=== PATIENT | male | born 1965 | race African-American/Black ===

== ENCOUNTER 2017-08-26 20:22 | Emergency (ER) | payer BC ==
[2017-08-26 22:25] LABS: #Eosinphils 0.1 thou/uL (0.0-0.7); #Lymphocytes 1.2 thou/uL (1.20-3.40); #Monocytes 0.4 thou/uL (0.11-0.59); #Neutrophils 4.8 thou/uL (1.40-6.50); %Basophils 0.6 % (0.0-1.0); %Eosinophils 2.2 % (0.0-10.0); %Lymphocytes 18.3 % (21.0-51.0); %Monocytes 6.7 % (0.0-10.0); Hematocrit 43.3 % (42.0-52.0); Mean Platelet Volume 5.9 fL (7.4-10.4); Red Blood Cell (RBC) Count 4.74 mill/uL (4.70-6.10); White Blood Cell (WBC) Count 6.6 thou/uL (4.8-10.8)
--- NOTE | 2017-08-26 22:28 | RAD ---
PORTABLE CHEST ONE VIEW: 08/26/17 at 9:45 p.m. HISTORY: Chest pain. FINDINGS: Comparison is made with the exam of 06/21/17. The heart size is normal. The lungs are well expanded without focal areas of consolidation, pneumoth orax or pleural effusions. IMPRESSION: No radiographic evidence of acute cardiopulmonary process. POS: [facility]
[2017-08-26 22:45] LABS: ALT (SGPT) 26 U/L (8-55); AST (SGOT) 23 U/L (5-34); Alkaline Phosphatase 70 U/L (40-150); Anion Gap 13 mmol/L (10-20); BUN (Urea Nitrogen) 13 mg/dL (8.4-25.7); Bilirubin, Total 0.4 mg/dL (0.2-1.2); CK (CPK) 205 U/L (30-200); Calc. Creatinine Clearance 0 mL/min (70-130); Calcium 9.1 mg/dL (7.8-10.44); Carbon Dioxide 25 mmol/L (22-29); Chloride 108 mmol/L (98-107); Estimated GFR-MDRD 85; Globulin 3.3 g/dL (2.4-3.5); Protein, Total 7.3 g/dL (6.0-8.3)
[2017-08-26 22:50] LABS: Troponin I Less than 0.010 ng/mL (< 0.028)
== END 2017-08-27 00:58 | disposition home or self-care (01) ==
LOC: ERS 20:22
DX: F41.9 Anxiety disorder, unspecified (principal); E11.9 Type 2 diabetes mellitus without complications; I10 Essential (primary) hypertension; F17.210 Nicotine dependence, cigarettes, uncomplicated; Z79.4 Long term (current) use of insulin
CPT/HCPCS: 36415; 71010; 80053; 82553; 84484; 85025; 93005; 94760

== ENCOUNTER 2017-09-09 15:57 | Observation (INO) | payer BC ==
[2017-09-09] MEDS ORDERED: Iopamidol 370 76% 150 ML VIAL FS ONE ×2 (16:07)
--- NOTE | 2017-09-09 16:26 | CT ---
CT OF BRAIN PERFORMED WITHOUT CONTRAST ENHANCEMENT: 09/09/17 HISTORY: Right sided weakness. COMPARISON: 06/22/17 study. The ventricular and cisternal system is within normal limits. There is no signs of intracerebral hem orrhage or extra-axial fluid collections. Mastoid air cells and visualized sinuses are clear. IMPRESSION: 1. No acute intracranial abnormalities. 2. Findings telephoned to Dr. Michelle at 1618 hours. POS: [facility]
[2017-09-09 16:37] LABS: #Eosinphils 0.1 thou/uL (0.0-0.7); #Monocytes 0.5 thou/uL (0.11-0.59); #Neutrophils 3.2 thou/uL (1.40-6.50); %Basophils 0.3 % (0.0-1.0); %Eosinophils 2.8 % (0.0-10.0); %Monocytes 10.4 % (0.0-10.0); Mean Platelet Volume 6.2 fL (7.4-10.4); White Blood Cell (WBC) Count 4.8 thou/uL (4.8-10.8)
[2017-09-09 16:46] LABS: PTT 25.4 SEC (22.9-36.1)
[2017-09-09 16:58] LABS: Troponin I Less than 0.010 ng/mL (< 0.028)
[2017-09-09 17:08] LABS: ALT (SGPT) 29 U/L (8-55); AST (SGOT) 23 U/L (5-34); Alkaline Phosphatase 67 U/L (40-150); Anion Gap 11 mmol/L (10-20); BUN (Urea Nitrogen) 14 mg/dL (8.4-25.7); Bilirubin, Total 0.3 mg/dL (0.2-1.2); Calc. Creatinine Clearance 0 mL/min (70-130); Calcium 9.5 mg/dL (7.8-10.44); Carbon Dioxide 26 mmol/L (22-29); Chloride 107 mmol/L (98-107); Estimated GFR-MDRD Greater than 90; Globulin 3.4 g/dL (2.4-3.5); Protein, Total 7.6 g/dL (6.0-8.3)
--- NOTE | 2017-09-09 17:30 | CT ---
CT ANGIO OF NECK PERFORMED WITH INTRAVENOUS CONTRAST ENHANCEMENT WITH 3D RECONSTRUCTIONS: 09/09/17 HISTORY: Left leg and left arm weakness and paresthesias. Technically a fairly satisfactory examination was obtained. Small subcentimeter left lobe thyroid no dule is incidentally noted. No significant jugular chain adenopathy or any type of soft tissue mass visualized. The right carotid system shows some plaque formation at the origin of the right internal carotid art hans. There is no signs of dissection or stenosis. On the left side, there is also some plaque formation at the origin of the internal and external car otid arteries without evidence of any significant stenosis. The vertebral arteries are codominant. T he right vertebral is slightly larger than the left. There is some atherosclerotic plaque and mild n arrowing at the origin of the left vertebral artery. IMPRESSION: 1. No significant stenosis of either internal carotid artery. No signs for dissection. 2. Mild narrowing at the origin of the left vertebral artery. POS: [facility]
--- NOTE | 2017-09-09 17:33 | CT ---
CT ANGIO OF HEAD PERFORMED WITH INTRAVENOUS CONTRAST ENHANCEMENT WITH 3D RECONSTRUCTIONS: 09/09/17 HISTORY: Left leg and left arm numbness. This is done as an angiographic and as a perfusion study; however, due to technical factors, the per fusion did not work on this examination. The angiographic portion of this study shows normal appearing basilar and posterior cerebral arterie s. Anterior and middle cerebral arteries and their branches appear unremarkable. I do not see any si gns of any filling defect or any areas of significant narrowing. No signs of aneurysm or vascular ma lformation. IMPRESSION: Unremarkable CT angio of the brain. POS: [facility]
[2017-09-09] MEDS ORDERED: Ondansetron HCl/PF 4 MG/2 ML Vial IVP PRN (18:54)
[2017-09-09] MEDS ORDERED: Guaifenesin DM 100-10/5 ML UDCUP PO PRN (18:54)
[2017-09-09] MEDS ORDERED: Zolpidem Tartrate 5 MG TAB PO PRN (18:54)
[2017-09-09] MEDS ORDERED: Acetaminophen 650 MG Suppository PR PRN (18:54)
[2017-09-09] MEDS ORDERED: hydrALAZINE 20 MG/ML VIAL SLOW IVP PRN (18:54)
[2017-09-09] MEDS ORDERED: Dextrose 5% in Water 1,000 ML IV PRN ×2 (18:57→19:02)
[2017-09-09] MEDS ORDERED: Dextrose 50% Abboject 50 ML SYRINGE SLOW IVP PRN ×2 (18:57→19:02)
[2017-09-09 20:05] LABS: Troponin I Less than 0.010 ng/mL (< 0.028)
[2017-09-09] MEDS ORDERED: Atorvastatin Calcium 10 MG TAB PO SCH (21:00)
--- NOTE | 2017-09-09 21:14 | HP ---
DATE OF ADMISSION: 09/09/2017 ADMITTING PHYSICIAN: Dr. Kishan Maya. PRIMARY CARE PHYSICIAN: Dr. Briceno. CHIEF COMPLAINT: Left-sided weakness. HISTORY OF PRESENT ILLNESS: The patient is a 52-year-old gentleman with history of hypertension and diabetes. The patient presented complaining of left leg heaviness and weakness. He also reports h aving left arm numbness, facial tingling and frontal headache. All of this had started about 45 min utes before he presented to the ER. During my interview, the symptoms have resolved. He denies leena sea, vomiting, shortness of breath, chest pain, headache or any other complaints at this time. REVIEW OF SYSTEMS: The following complete review of systems was negative, unless otherwise mentione d in the HPI or below: Constitutional: Weight loss or gain, sense of well-being, ability to conduct usual activities, exer cise tolerance. Skin/Breast: Rash, itching, changes in hair growth or loss, nail changes, breast lumps, tenderness, swelling, nipple discharge. Eyes: Vision, double vision, tearing, blind spots, pain. ENT/Mouth: Headaches (location, time of onset, duration, precipitating factors), vertigo, lighthead edness, injury. Vision, double vision, tearing, blind spots, pain, nose bleeding, colds, obstruction , discharge, dental difficulties, gingival bleeding, dentures, neck stiffness, pain, tenderness, mas ses in thyroid or other areas. Cardiovascular: Precordial pain, substernal distress, palpitations, syncope, dyspnea on exertion, o rthopnea, nocturnal paroxysmal dyspnea, edema, cyanosis, hypertension, heart murmurs, varicosities, phlebitis, claudication. Respiratory: Pain, shortness of breath, wheezing, stridor, cough, hemoptysis, fever or night sweats . Gastrointestinal: Poor appetite, dysphagia, indigestion, abdominal pain, heartburn, eructation, leena sea, vomiting, hematemesis, jaundice, constipation, or diarrhea, abnormal stools (estela-colored, macey y, bloody, greasy, foul smelling), flatulence, hemorrhoids, recent changes in bowel habits. Genitourinary: Urgency, frequency, dysuria, nocturia, hematuria, polyuria, oliguria, unusual (or ch penny in) color of urine, stones, hesitancy, change in size of stream, dribbling, acute retention or incontinence, libido, potency. Musculoskeletal: Pain, swelling, redness or heat of muscles or joints, limitation, of motion, muscu lar weakness, atrophy, cramps. Neurologic/Psychiatric: Convulsions, paralyses, tremor, incoordination, parasthesias, difficulties with memory of speech, sensory or motor disturbances, or muscular coordination (ataxia, tremor), emo tional problems, anxiety, depression, previous psychiatric care, unusual perceptions, hallucinations . Allergy/Immunologic: Skin rash, anemia, bleeding tendency, polydipsia, polyuria, intolerance to hea t or cold. PAST MEDICAL HISTORY: Significant for hypertension, diabetes type 2. PAST SURGICAL HISTORY: None. PSYCHIATRIC HISTORY: History of anxiety. FAMILY HISTORY: Noncontributory to this case. SOCIAL HISTORY: He drinks socially, less than 5 drinks everyday. He is a smoker with a 30-pack-yea r history. He denies illicit drug use. HOME MEDICATIONS: Metformin 500 mg b.i.d., Lantus 30 units every day, Humalog 10 units t.i.d. DRUG ALLERGIES: No known drug allergies. PHYSICAL EXAMINATION: VITAL SIGNS: Blood pressure 163/62, pulse 86, respirations 16, satting 100% on room air, temperatur e 98.2. GENERAL: He is pleasant, cooperative, nontoxic, no acute distress. HEAD: Normocephalic, atraumatic. EYES: PERRL. Extraocular muscles intact. ENT: No bleeding from the nares. Mouth exam normal. Mucous membranes moist. NECK: Normal range of motion. Trachea midline. LUNGS: No wheezing or rales, clear breath sounds bilaterally. CARDIOVASCULAR: Sinus tachycardia. No murmurs, regurgitation, gallop. ABDOMEN: Nontender, nondistended. Normoactive bowel sounds bilaterally in all 4 quadrants. NEUROLOGIC: He does have mild drift to the left lower extremity, but no facial asymmetry, no droop, no aphasia. NIH of 2. SKIN: Skin is warm, dry, normal in color. LABORATORY DATA AND IMAGES: Chem-7, sodium 139, potassium 4.6, chloride 107, CO2 of 26, BUN 14, cre atinine 1.03. Blood sugar of 106, total bilirubin 0.3, albumin 4.2, AST 23, ALT 29, CK-MB 2.0, trop onin less than 0.01, PTT 25.4, INR 1.1, PT 14.0. CBC shows a white count of 4.8, hemoglobin 15.9, h ematocrit 47.0, platelets 243,000. CTA of the [place] is negative for any significant sten osis. CTA of the neck is negative for any significant stenosis. Brain CT is negative for acute int racranial process. ASSESSMENT: 1. Transient ischemic attack. 2. Hypertension. 3. Diabetes. PLAN: The patient will be admitted to stroke unit, observation. We will obtain an MRI in the [facility] as well as a neurological input based on those findings. The patient will be started on antiplat elet therapy with aspirin 81 mg every day. The patient will also be treated with a moderate sliding scale insulin regimen and we will initiate other interventions as needed.
[2017-09-09] MEDS: clonazePAM 1 MG TAB PO SCH (21:43)
[2017-09-09] MEDS: Insulin Regular 300 UNITS/3 ML VIAL SC PRN (21:45)
[2017-09-09 22:40] VITALS: BMI 34.2
[2017-09-09 23:00] LABS: Troponin I Less than 0.010 ng/mL (< 0.028)
[2017-09-10 05:03] LABS: #Eosinphils 0.2 thou/uL (0.0-0.7); #Lymphocytes 1.5 thou/uL (1.20-3.40); #Monocytes 0.4 thou/uL (0.11-0.59); #Neutrophils 2.5 thou/uL (1.40-6.50); %Basophils 0.4 % (0.0-1.0); %Eosinophils 3.5 % (0.0-10.0); %Lymphocytes 32.6 % (21.0-51.0); %Monocytes 9.1 % (0.0-10.0); Hematocrit 42.3 % (42.0-52.0); Mean Platelet Volume 6.6 fL (7.4-10.4); White Blood Cell (WBC) Count 4.6 thou/uL (4.8-10.8)
[2017-09-10 05:16] LABS: Anion Gap 8 mmol/L (10-20); BUN (Urea Nitrogen) 12 mg/dL (8.4-25.7); Calc. Creatinine Clearance 140 mL/min (70-130); Calcium 8.8 mg/dL (7.8-10.44); Carbon Dioxide 29 mmol/L (22-29); Chloride 105 mmol/L (98-107); Cholesterol 131 mg/dl (< 200 Desired); Estimated GFR-MDRD Greater than 90; LDL Cholesterol, Calculated 75 mg/dL
[2017-09-10] MEDS ORDERED: Aspirin 81 mg Enteric Coated Tablet PO SCH (09:00)
[2017-09-10] MEDS ORDERED: FLU VACC QS2017-18 36 mo. & older 0.5 ML SYRINGE IM ONE (09:00)
[2017-09-10] MEDS: clonazePAM 1 MG TAB PO SCH (09:37)
--- NOTE | 2017-09-10 10:00 | ULT ---
CAROTID ULTRASOUND WITH CORNEJO SCALE AND DOPPLER DUPLEX COLOR FLOW IMAGING SPECTRAL ANALYSIS PERFORMED: CLINICAL INDICATION: TIA. FINDINGS: There is mild scattered atherosclerotic calcification of the carotid arteries. PEAK SYSTOLIC VELOCITY (CM/S): Right CCA 112 Left CCA 131 Right ICA 69 Left ICA 53 There is antegrade flow within the visualized bilateral vertebral arteries. IMPRESSION: 1. No hemodynamically significant stenosis of the right internal carotid artery. 2. No hemodynamically significant stenosis of the left internal carotid artery. POS: [facility]
--- NOTE | 2017-09-10 11:38 | PDOC.PN ---
- Subjective Encounter Start Date: 09/10/17 Encounter Start Time: 11:36 - Objective Resuscitation Status: Resuscitation Status FULL:Full Resuscitation Vital Signs & Weight: Vital Signs (12 hours) Temp Pulse Resp BP Pulse Ox 09/10/17 08:00 98 F 86 18 09/10/17 07:38 98 F 86 18 126/85 97 09/10/17 04:00 98.1 F 65 18 123/67 94 L I&O: 09/09/17 09/10/17 09/11/17 06:59 06:59 06:59 Intake Total 160 480 Balance 160 480 Result Diagrams: 09/10/17 04:22 09/10/17 04:22 Additional Labs: Accuchecks 09/10/17 09/10/17 09/09/17 10:58 05:18 21:40 POC Glucose 163 H 106 255 H Phys Exam - Physical Examination HEENT: PERRLA, sclera anicteric, TM's clear Neck: no JVD, supple Respiratory: no wheezing, no rales Cardiovascular: RRR Gastrointestinal: soft, non-tender Musculoskeletal: no edema Neurological: non-focal, moves all 4 limbs (slight right LE weakness) Dx/Plan (1) TIA (transient ischemic attack) Status: Acute (2) DM type 2 (diabetes mellitus, type 2) Status: Chronic (3) HTN (hypertension) Code(s): I10 - ESSENTIAL (PRIMARY) HYPERTENSION Status: Chronic - Plan cont current plan of care seen by neuro per RN cleared to go home on asa and statin -: MRI was requested but pt unable to lay down, neuro aware -: plan dc this afternoon -: neec to ff up with PCP * .
[2017-09-10] MEDS: Insulin Regular 300 UNITS/3 ML VIAL SC PRN (12:00)
[2017-09-10 12:19] VITALS: BP 143/81; TEMP 98.8
--- NOTE | 2017-09-10 16:06 | CON ---
DATE OF CONSULTATION: 09/10/2017 CONSULTING PHYSICIAN: Hospitalist Service. IMPRESSION: 1. Transient ischemic attack with transient left-sided weakness. 2. Diabetes. 3. Hypertension. PLAN: 1. Continue aspirin. 2. Add Lipitor. 3. Follow up on echocardiogram. 4. The patient can be discharged home today. HISTORY OF PRESENT ILLNESS: Mr. Cervantes is a 52-year-old gentleman with a history of hypertension and diabetes. He presented yesterday with left-sided weakness that affected both the arm and the leg. He also had a headache associated with it and some slight blurred vision. His symptoms lasted about 2 hours and resolved spontaneously. His workup included a CT of the brain, CTA of the carotids and [place], all of which were unremarkable. He denies any past history of similar events. PAST MEDICAL HISTORY: Hypertension and diabetes. ALLERGIES: None. SOCIAL HISTORY: Unremarkable. FAMILY HISTORY: Noncontributory. REVIEW OF SYSTEMS: No chest pain or shortness of breath. PHYSICAL EXAMINATION: VITAL SIGNS: Blood pressure 126/85, pulse 86, respirations 18, temperature 98. HEENT: Pupils are equal and reactive. Conjunctivae clear. Oropharynx clear. NECK: Supple, no lymphadenopathy. EXTREMITIES: No cyanosis, clubbing or edema. NEUROLOGIC: He is alert and appropriate. His speech is fluent and clear. His exam is otherwise no nfocal. No abnormal movements were seen. LABORATORY STUDIES: Including a CBC, coags, and chemistry panel are only notable for glucose of 255 , cholesterol was 131 with LDL of 75 and HDL of 40. SUMMARY: This is a middle aged man with risk factors for small vessel disease who presented with so me transient left-sided weakness and headache suggesting posterior circulation ischemic event. Give n that he was taking aspirin, would add a statin to improve his ratio and reduce his risk of another TIA. He appears to be stable for discharge home. His echocardiogram reveals significant depressio n of ejection fraction below 35%, then I would consider anticoagulation instead.
--- NOTE | 2017-09-10 21:28 | DIS ---
DATE OF ADMISSION: 09/09/2017 DATE OF DISCHARGE: 09/10/2017 FINAL DIAGNOSES: 1. Transient ischemic attack. 2. Hypertension. 3. Diabetes mellitus. COURSE IN THE [place]: Mr. Cervantes is a 52-year-old male, who presented with left leg heaviness and weakn ess. As also mentioned, had associated left arm numbness, facial tingling and frontal headache. By that time he got to the emergency room, his symptoms had already resolved. He had a carotid Dopple r done, which did not show any significant stenosis. A head CT done and CTA were also unremarkable. He was seen by Neurology and recommended MRI, but the patient cannot lay flat and that he was domo red by Neurology to go home on aspirin and statin. He had remained to be stable that he is being di scharged to home to follow up with his PCP as soon as possible, Dr. Briceno. DISCHARGE MEDICATIONS: Discharged on aspirin 325 mg p.o. daily, lisinopril with hydrochlorothiazide 20/25 mg p.o. b.i.d., continue Lantus 30 units subcutaneous daily, Lipitor 10 mg p.o. daily, Humal og sliding scale, and hydroxyzine 25 mg q.6 hours p.r.n. for itching. Carotid Doppler did not show any significant stenosis. CT of the brain and CT of the brain did not show any acute finding. LABORATORY RESULTS: White count 4.6, hemoglobin 13.7, and platelet 215. Sodium 138, potassium 3.7, chloride 105, CO2 of 29, BUN 12, creatinine 0.85, calcium 8.8. Cardiac enzymes less than 0.010. T riglyceride 82, cholesterol 131, LDL 75. Echocardiogram done, but result is still pending.
== END 2017-09-10 15:24 | disposition home or self-care (01) ==
LOC: ERS 15:57 → 2SE 18:26 → INTOOBSV 18:26
PROVIDERS: ADMIT Internal Medicine Addiction Medicine; ATTEND Internal Medicine Addiction Medicine
DX: G45.9 Transient cerebral ischemic attack, unspecified (principal); I10 Essential (primary) hypertension; E11.9 Type 2 diabetes mellitus without complications; F17.210 Nicotine dependence, cigarettes, uncomplicated; Z79.4 Long term (current) use of insulin
CPT/HCPCS: 36415; 36416; 70450; 70496; 70498; 80048; 80053; 80061; 82553; 84484; 85025; 85610; 85730; 93005; 93306; 93880; 96360; A4216; G0378; J1815

== ENCOUNTER 2017-10-20 13:00 | Emergency (ER) | payer BC ==
[2017-10-20 13:51] LABS: #Eosinphils 0.1 thou/uL (0.0-0.7); #Monocytes 0.5 thou/uL (0.11-0.59); #Neutrophils 3.8 thou/uL (1.40-6.50); %Basophils 0.8 % (0.0-1.0); %Eosinophils 2.5 % (0.0-10.0); %Lymphocytes 17.9 % (21.0-51.0); %Monocytes 8.3 % (0.0-10.0); Hematocrit 45.7 % (42.0-52.0); Mean Platelet Volume 6.2 fL (7.4-10.4); Red Blood Cell (RBC) Count 5.05 mill/uL (4.70-6.10); White Blood Cell (WBC) Count 5.4 thou/uL (4.8-10.8)
[2017-10-20 14:16] LABS: Troponin I Less than 0.010 ng/mL (< 0.028)
[2017-10-20 15:48] LABS: ALT (SGPT) 46 U/L (8-55); AST (SGOT) 30 U/L (5-34); Alkaline Phosphatase 73 U/L (40-150); Anion Gap 16 mmol/L (10-20); BUN (Urea Nitrogen) 28 mg/dL (8.4-25.7); Bilirubin, Total 0.5 mg/dL (0.2-1.2); Calc. Creatinine Clearance 0 mL/min (70-130); Calcium 9.3 mg/dL (7.8-10.44); Carbon Dioxide 21 mmol/L (22-29); Chloride 101 mmol/L (98-107); Estimated GFR-MDRD 87; Globulin 3.4 g/dL (2.4-3.5); Protein, Total 7.7 g/dL (6.0-8.3)
== END 2017-10-20 15:43 | disposition home or self-care (01) ==
LOC: ERS 13:00
DX: F41.9 Anxiety disorder, unspecified (principal); E66.9 Obesity, unspecified; I10 Essential (primary) hypertension; E78.5 Hyperlipidemia, unspecified; E11.9 Type 2 diabetes mellitus without complications; Z79.4 Long term (current) use of insulin; Z79.899 Other long term (current) drug therapy; Z87.891 Personal history of nicotine dependence
CPT/HCPCS: 36415; 80053; 82553; 84484; 85025; 93005

== ENCOUNTER 2019-06-28 11:51 | Day surgery (SDC) | payer BC ==
[2019-06-27 16:25] VITALS: BMI 31.9
--- NOTE | 2019-06-28 16:44 | MRI ---
MRI LUMBAR SPINE WITHOUT CONTRAST: Date: 06/28/19 HISTORY: Lumbar radiculopathy. Left foot drop, status post fall 2 months ago. COMPARISON: None. FINDINGS: Appropriate T1 marrow signal intensity of the lumbar vertebra. Lumbar spine vertebral body height is maintained. No fracture. No significant STIR hyperintensity to suggest vertebral body edema or ligame ntous injury. There appears to be a combination of Type I and Type II Modic changes at the L5-S1 disc space. There is associated anterior osteophyte formation. T2 hyperintensities in the left renal cortex likely representing cortical cysts. Appropriate signal i ntensity of the paraspinal muscles. Conus medullaris terminates at the upper aspect of L1. T12-L1: Adequate disc hydration. No significant central canal stenosis or foraminal narrowing. L1-L2: Adequate disc hydration. No significant central canal stenosis or foraminal narrowing. L2-L3: Adequate disc hydration. No significant posterior disc abnormality. No significant central ca nal stenosis. Minimal ligamentum flavum thickening and facet hypertrophy. Bilaterally, neural foramin a are patent. L3-L3: Adequate disc hydration. Generalized disc bulge flattens the ventral thecal sac. Mild central canal stenosis. There is bilateral facet hypertrophy with fluid in both facet joints. Mild bilateral foraminal narrowing. L4-L5: Adequate disc hydration. There is a central disc protrusion that abuts the thecal sac. There is severe central canal stenosis predominantly due to epidural lipomatosis. Mild ligamentum flavum th ickening. There is facet hypertrophy with fluid in both facet joints. Moderate right and moderate to severe left foraminal narrowing. L5-S1: Mild loss of disc space height. There is no significant posterior disc abnormality. There is severe stenosis of the thecal sac secondary to epidural lipomatosis. Moderate bilateral foraminal frances rowing due to facet hypertrophy. IMPRESSION: 1. Epidural lipomatosis with stenosis of the thecal sac at the L4-L5 and L5-S1 level. 2. Posterior element hypertrophy at L4-L5 and L5-S1, and to a lesser extent at L3-L4. Significant fo raminal narrowing at L4-L5 and L5-S1. POS: [facility]
== END 2019-06-28 16:30 | disposition home or self-care (01) ==
LOC: SDC/OP 11:51
PROVIDERS: ATTEND Neurological Surgery
DX: M54.16 Radiculopathy, lumbar region (principal); M54.12 Radiculopathy, cervical region; M21.372 Foot drop, left foot; I10 Essential (primary) hypertension; E11.9 Type 2 diabetes mellitus without complications; E78.5 Hyperlipidemia, unspecified; K21.9 Gastro-esophageal reflux disease without esophagitis
CPT/HCPCS: 72148

== ENCOUNTER 2019-12-26 12:56 | Outpatient (CLI) | payer BC ==
--- NOTE | 2019-12-26 15:08 | CT ---
Exam: Lumbar spine CT without contrast HISTORY: Lumbar radiculopathy. Previous surgery in June and August 2019. Persistent left hip pain. COMPARISON: None. CORRELATION: MRI lumbar spine 06/28/2019. FINDINGS: 5 lumbar type vertebra. Lumbar spine vertebral body height is maintained. No fracture Appropriate attenuation of the paraspinal muscles and visualized solid organs. Normal caliber aorta Visualized sacrum is intact. There are degenerative changes with fusion of the left and right sacroil iac joint spaces. Limited evaluation the contents of the central spinal canal due to technique. T11-T12 and T12-L1: No significant central canal stenosis or significant neural foraminal narrowing. L1-L2: Minimal left and right paracentral disc bulges. No significant central canal stenosis. Bilater ally, neural foramina are patent. L2-L3: Broad-based disc bulge abuts the thecal sac. Mild ligamentum flavum thickening and facet hyper trophy. No significant central canal stenosis. Bilaterally, neural foramina are patent. L3-L4: Prominent posterior epidural fat. Ligamentum flavum thickening and facet hypertrophy are prese nt. There is a broad-based disc bulge. Constellation of findings result in moderate central canal stenosis. Moderate bilateral foraminal due to disc material. L4-L5: Posterior laminectomy defect. Broad-based disc bulge, ligamentum flavum thickening and facet h ypertrophy result in at least moderate central canal stenosis. A component of stenosis may in part be due to scar tissue. Moderate to severe bilateral foraminal narrowing. L5-S1: Posterior laminectomy defect. Vacuum disc phenomenon. Broad-based disc bulge without significa nt mass effect upon the thecal sac. Bilateral pars defects. Left facetectomy. There is no significant central canal stenosis. Moderate to severe right and moderate left foraminal narrowing. IMPRESSION: 1. Fusion of the left and right sacroiliac joint. 2. Laminectomy defect at L4-L5 and L5-S1. 3. Varying degrees of central canal stenosis and neural foraminal narrowing as detailed above. 4. Bilateral pars defects at L5 without significant spondylolisthesis.. Transcribed Date/Time: 12/26/2019 4:58 PM
== END 2019-12-26 12:57 | disposition home or self-care (01) ==
LOC: TBSIIMAG 12:56
PROVIDERS: ATTEND Neurological Surgery
DX: M54.16 Radiculopathy, lumbar region (principal); M48.061 Spinal stenosis, lumbar region without neurogenic claudication; M48.07 Spinal stenosis, lumbosacral region; M43.06 Spondylolysis, lumbar region; Z98.1 Arthrodesis status
CPT/HCPCS: 72131

== ENCOUNTER 2020-02-06 13:46 | Outpatient (CLI) | payer BC ==
--- NOTE | 2020-02-06 14:23 | RAD ---
XR Cerv Sp Ap Lat STANDARD: 02/06/2020 12:00 AM CLINICAL HISTORY: Neck pain COMPARISON: CT cervical spine dated January 20, 2014 Bones: No acute fracture demonstrated. Intervertebral disc spaces and facet complexes: There is an ACDF spanning C3-C5 that has been placed in the interim. Instrumentation projects in the expected position. There are intervertebral disc cage is at C3-4 and C4-5. Spinal alignment: Within normal limits. Prevertebral soft tissues: Normal. Lateral masses: Symmetric. Lung apices: Clear. Additional findings: None. IMPRESSION: Postoperative cervical spine. No acute osseous abnormality..
== END 2020-02-06 13:47 | disposition home or self-care (01) ==
LOC: TBSIIMAG 13:46
PROVIDERS: ATTEND Neurological Surgery
DX: M54.2 Cervicalgia (principal); Z98.890 Other specified postprocedural states
CPT/HCPCS: 72040

== ENCOUNTER 2023-10-17 15:54 | Emergency (ER) | payer MEDICARE ==
[2023-10-17 16:19] LABS: #Eosinphils 0.2 thou/uL (0.0-0.7); #Monocytes 0.3 thou/uL (0.11-0.59); #Neutrophils 2.6 thou/uL (1.40-6.50); %Basophils 0.3 % (0.0-1.0); %Eosinophils 3.8 % (0.0-10.0); %Monocytes 8.6 % (0.0-10.0); Hematocrit 37.5 % (42.0-52.0); Hemoglobin 12.9 g/dL (14.0-18.0); Mean Corpuscular HGB CONC 34.4 g/dL (32.0-36.0); Mean Corpuscular Hemoglobin 30.6 pg (27.0-31.0); Mean Corpuscular Volume 89.1 fl (78.0-98.0); Mean Platelet Volume 8.7 fL (7.4-10.4); Platelet Count 199 10x3/uL (130-400); RBC Distribution Width 12.3 % (11.5-14.5); Red Blood Cell (RBC) Count 4.21 mill/uL (4.70-6.10)
[2023-10-17 16:53] LABS: ALT (SGPT) 25 U/L (8-55); AST (SGOT) 24 U/L (5-34); Albumin 3.9 g/dL (3.5-5.0); Alkaline Phosphatase 60 U/L (40-110); Anion Gap 15 mmol/L (10-20); BUN (Urea Nitrogen) 30 mg/dL (8.4-25.7); Bilirubin, Total 0.3 mg/dL (0.2-1.2); Calc. Creatinine Clearance 0 mL/min (70-130); Calcium 8.9 mg/dL (7.8-10.44); Carbon Dioxide 24 mmol/L (22-29); Chloride 103 mmol/L (98-107); Estimated GFR 76; Globulin 3.1 g/dL (2.4-3.5); Glucose 132 mg/dL (70-105); Lipase 115 U/L (8-78); Magnesium 1.6 mg/dL (1.6-2.6); Potassium 3.8 mmol/L (3.5-5.1); Sodium 138 mmol/L (136-145)
[2023-10-17 16:54] LABS: Troponin I Less than 0.010 ng/mL (< 0.028)
== END 2023-10-17 17:50 | disposition home or self-care (01) ==
LOC: ERS 15:54
DX: R00.2 Palpitations (principal); E11.9 Type 2 diabetes mellitus without complications; E78.5 Hyperlipidemia, unspecified; I10 Essential (primary) hypertension; Z87.891 Personal history of nicotine dependence; Z79.4 Long term (current) use of insulin; Z79.899 Other long term (current) drug therapy; Z79.84 Long term (current) use of oral hypoglycemic drugs
CPT/HCPCS: 36415; 71046; 80053; 83690; 83735; 84443; 84484; 85025; 93005; 94760

== ENCOUNTER 2024-10-15 18:09 | Emergency (ER) | payer MEDICARE ==
[2024-10-15 18:37] LABS: #Basophils Less than 0.03 10x3/uL (0.0-0.2); %Basophils 0.2 % (0.0-1.0); %Eosinophils 2.8 % (0.0-10.0); %Lymphocytes 24.2 % (21.0-51.0); %Monocytes 10.5 % (0.0-10.0); %Neutrophils 62.1 % (42.0-75.0); Hematocrit 37.6 % (42.0-52.0); Mean Corpuscular HGB CONC 34.6 g/dL (32.0-36.0); Mean Corpuscular Hemoglobin 30.2 pg (27.0-31.0); Mean Corpuscular Volume 87.4 fL (78.0-98.0); Platelet Count 187 10x3/uL (130-400); RBC Distribution Width 12.2 % (11.5-14.5)
[2024-10-15 18:50] LABS: Prothrombin Time 13.5 sec (12.0-14.7)
[2024-10-15 18:51] LABS: PTT 26.1 sec (22.9-36.1)
[2024-10-15 19:02] LABS: ALT (SGPT) 26 U/L (8-55); AST (SGOT) 23 U/L (5-34); Albumin 4.3 g/dL (3.4-4.8); Alkaline Phosphatase 66 U/L (40-110); Anion Gap 13 mmol/L (10-20); BUN (Urea Nitrogen) 23 mg/dL (8.4-25.7); Bilirubin, Total 0.3 mg/dL (0.2-1.2); Calc. Creatinine Clearance 0 mL/min (70-130); Calcium 9.1 mg/dL (7.8-10.44); Carbon Dioxide 24 mmol/L (23-31); Chloride 105 mmol/L (98-107); Estimated GFR 79; Glucose 101 mg/dL (80-115); Potassium 4.3 mmol/L (3.5-5.1); Protein, Total 7.3 g/dL (5.8-8.1); Sodium 138 mmol/L (136-145)
[2024-10-15] MEDS ORDERED: Aspirin 81 mg Enteric Coated Tablet ONE (19:22)
== END 2024-10-15 19:48 | disposition home or self-care (01) ==
LOC: ERS 18:09
DX: R20.0 Anesthesia of skin (principal); E11.9 Type 2 diabetes mellitus without complications; I10 Essential (primary) hypertension; Z87.891 Personal history of nicotine dependence; Z95.1 Presence of aortocoronary bypass graft
CPT/HCPCS: 36415; 36416; 70450; 70496; 70498; 71045; 80053; 84484; 85025; 85610; 85730; 86850; 86900; 86901; 93005; 94760

== ENCOUNTER 2024-10-29 07:53 | Emergency (ER) | payer MEDICARE ==
[2024-10-29] MEDS ORDERED: Ondansetron PF 4 MG/2 ML Vial ONE (08:24)
[2024-10-29 08:33] LABS: #Basophils Less than 0.03 10x3/uL (0.0-0.2); %Basophils 0.3 % (0.0-1.0); %Eosinophils 3.8 % (0.0-10.0); %Lymphocytes 20.9 % (21.0-51.0); %Monocytes 10.1 % (0.0-10.0); %Neutrophils 64.9 % (42.0-75.0); Hematocrit 36.3 % (42.0-52.0); Hemoglobin 12.3 g/dL (14.0-18.0); Mean Corpuscular HGB CONC 33.9 g/dL (32.0-36.0); Mean Corpuscular Hemoglobin 29.6 pg (27.0-31.0); Mean Corpuscular Volume 87.5 fL (78.0-98.0); Mean Platelet Volume 8.5 fL (7.4-10.4); Platelet Count 175 10x3/uL (130-400); RBC Distribution Width 12.3 % (11.5-14.5); Red Blood Cell (RBC) Count 4.15 mill/uL (4.70-6.10)
[2024-10-29 08:56] LABS: ALT (SGPT) 24 U/L (8-55); AST (SGOT) 20 U/L (5-34); Albumin 3.7 g/dL (3.4-4.8); Alkaline Phosphatase 57 U/L (40-110); Anion Gap 11 mmol/L (10-20); BUN (Urea Nitrogen) 24 mg/dL (8.4-25.7); Bilirubin, Total 0.5 mg/dL (0.2-1.2); Calc. Creatinine Clearance 0 mL/min (70-130); Calcium 8.7 mg/dL (7.8-10.44); Carbon Dioxide 25 mmol/L (23-31); Chloride 105 mmol/L (98-107); Estimated GFR 93; Globulin 2.8 g/dL (2.4-3.5); Glucose 149 mg/dL (80-115); Lipase 31 U/L (8-78); Potassium 4.2 mmol/L (3.5-5.1); Protein, Total 6.5 g/dL (5.8-8.1); Sodium 137 mmol/L (136-145)
[2024-10-29 08:58] LABS: Troponin I Less than 0.010 ng/mL (< 0.028)
[2024-10-29] MEDS ORDERED: Iopamidol-370 76% 500 ML MDV (1 ML CHARGE) ONE (11:38)
== END 2024-10-29 09:38 | disposition home or self-care (01) ==
LOC: ERS 07:53
DX: K59.00 Constipation, unspecified (principal); I10 Essential (primary) hypertension; E78.5 Hyperlipidemia, unspecified; E11.9 Type 2 diabetes mellitus without complications; Z87.891 Personal history of nicotine dependence; Z79.899 Other long term (current) drug therapy; Z79.84 Long term (current) use of oral hypoglycemic drugs; Z79.4 Long term (current) use of insulin
CPT/HCPCS: 74177; 80053; 83690; 84484; 85025; 93005; J2405; Q9967; 36415; 96374

== ENCOUNTER 2025-09-19 08:23 | Emergency (ER) | payer MEDICARE ==
[2025-09-19 08:55] LABS: #Basophils Less than 0.03 10x3/uL (0.0-0.2); #Eosinophils 0.16 10x3/uL (0.0-0.7); #Monocytes 0.39 10x3/uL (0.11-0.59); #Neutrophils 2.19 10x3/uL (1.40-6.50); %Basophils 0.3 % (0.0-1.0); %Eosinophils 4.7 % (0.0-10.0); %Lymphocytes 19.3 % (21.0-51.0); %Monocytes 11.4 % (0.0-10.0); %Neutrophils 64.0 % (42.0-75.0); Hematocrit 36.1 % (42.0-52.0); Hemoglobin 11.7 g/dL (14.0-18.0); Mean Corpuscular Hemoglobin 29.0 pg (27.0-31.0); Mean Corpuscular Volume 89.6 fL (78.0-98.0); Platelet Count 195 10x3/uL (130-400); Red Blood Cell (RBC) Count 4.03 mill/uL (4.70-6.10); White Blood Cell (WBC) Count 3.42 10x3/uL (4.8-10.8)
[2025-09-19 09:11] LABS: ALT (SGPT) 38 U/L (Less than 45); AST (SGOT) 34 U/L (11-34); Albumin 4.3 g/dL (3.1-4.5); Alkaline Phosphatase 53 U/L (40-110); Anion Gap 13 mmol/L (10-20); BUN (Urea Nitrogen) 24 mg/dL (8.4-25.7); Bilirubin, Total 0.3 mg/dL (0.3-1.2); Calc. Creatinine Clearance 0 mL/min (70-130); Calcium 9.5 mg/dL (7.8-10.44); Carbon Dioxide 24 mmol/L (23-31); Chloride 104 mmol/L (98-107); Globulin 2.9 g/dL (2.4-3.5); Glucose 114 mg/dL (80-115); Potassium 4.4 mmol/L (3.5-5.1); Sodium 137 mmol/L (136-145)
== END 2025-09-19 09:35 | disposition home or self-care (01) ==
LOC: ERS 08:23
DX: R07.89 Other chest pain (principal); E11.9 Type 2 diabetes mellitus without complications; I10 Essential (primary) hypertension; Z79.899 Other long term (current) drug therapy; Z79.84 Long term (current) use of oral hypoglycemic drugs; Z79.4 Long term (current) use of insulin; Z95.0 Presence of cardiac pacemaker
CPT/HCPCS: 71045; 80053; 84484; 85025; 93005